=== PATIENT | male | born 1990 | race African-American/Black ===

== ENCOUNTER 2024-03-16 08:33 | Emergency (ER) | payer OTHER ==
[~2024-03-16] VITALS: Ht 170.2 cm; Wt 64.0 kg
[2024-03-16 09:11] LABS: BASOPHILS % (AUTO) 0.7 % (0.0-2.0); EOSINOPHILS # (AUTO) 0.1 K/uL (0.0-0.7); EOSINOPHILS % (AUTO) 1.5 % (0.0-6.0); HEMATOCRIT 48 % (39-51); HEMOGLOBIN 15.4 g/dL (13.5-17.5); LYMPHOCYTES # (AUTO) 1.6 K/uL (0.8-4.8); LYMPHOCYTES % (AUTO) 31.5 % (20.0-44.0); MEAN CORPUSCULAR HEMOGLOBIN 31 PG (26.0-33.0); MEAN CORPUSCULAR HGB CONC 32 g/dl (31.0-36.0); MEAN CORPUSCULAR VOLUME 95 fL (80-96); MONOCYTES # (AUTO) 0.4 K/uL (0.1-1.30); MONOCYTES % (AUTO) 8.9 % (2.0-12.0); NEUTROPHILS # (AUTO) 2.9 K/uL (1.8-8.9); NEUTROPHILS % (AUTO) 57.4 % (43.0-81.0); PLATELET COUNT (AUTO) 285 K/uL (150-450); RED CELL DISTRIBUTION WIDTH 15.2 % (11.5-15.0); WHITE BLOOD COUNT (AUTO) 5.1 K/uL (4.3-11.0)
[2024-03-16 09:23] LABS: CALCIUM, SERUM 8.8 mg/dL (8.5-10.1); CARBON DIOXIDE 32 mmol/L (21-32); CHLORIDE 106 mmol/L (98-107); GLUCOSE 95 mg/dL (74-106); POTASSIUM 3.6 mmol/L (3.5-5.1); SODIUM SERUM 145 mmol/L (136-145); UREA NITROGEN, BLOOD 9 mg/dL (7-18)
[2024-03-16 09:37] LABS: NT-PRO BNP 8 pg/mL (0-125)
[2024-03-16] MEDS ORDERED: IOHEXOL-350 100 ML VIAL IV ONE (09:46)
[2024-03-16] MEDS ORDERED: IV NS 0.9% 250 ML IV ONE (09:46)
[2024-03-16] MEDS ORDERED: CT SWABBABLE VALVE TRANS SET 1 EA INFUS.SET MC ONE (09:46)
[2024-03-16] MEDS: IV NS 0.9% 1,000 ML BAG IV ONE (10:00)
[2024-03-16] MEDS: KETOROLAC TROMETHAMINE 15 MG/ML VIAL IV ONE (10:00)
[2024-03-16] MEDS ORDERED: KETOROLAC TROMETHAMINE 15 MG/ML VIAL ONE (10:17)
[2024-03-16] MEDS ORDERED: LIDO30AD10 TP (10:49)
[2024-03-16] MEDS ORDERED: IBUP-1955 PO (10:49)
[2024-03-16 12:42] VITALS: BP 119/71; TEMP 98.1; O2SAT 100
== END 2024-03-16 12:42 | disposition home or self-care (01) ==
LOC: ER 08:46 → EDBD 08:46 → ER 12:42
DX: S22.43XA Multiple fractures of ribs, bilateral, initial encounter for closed fracture (principal); R07.89 Other chest pain; G89.29 Other chronic pain; R06.00 Dyspnea, unspecified; F10.129 Alcohol abuse with intoxication, unspecified; V89.2XXA Person injured in unspecified motor-vehicle accident, traffic, initial encounter; Y93.89 Activity, other specified; Y92.89 Other specified places as the place of occurrence of the external cause; Y99.8 Other external cause status; Y90.5 Blood alcohol level of 100-119 mg/100 ml
CPT/HCPCS: 99285; 96374; 96361; 93005; 71045; 71275; 85025; 80048; 85378; 36415; 84484; 83880; 80320; J7030; J7050; Q9967; J1885; G0480